=== PATIENT | male | born 1955 | race Caucasian/White ===

== ENCOUNTER → 2018-01-19 | Outpatient (REF) ==
[~2018-01-19] MED LIST: ATOR20TA22 PO; ATOR40TA24 PO; ESCI20TA38 PO; HYDR-2966 PO; HYDR-317 PO; KET10 PO; LEVO75TA68 PO; LEVO88TA43 PO; LISI-349 PO; LISI30TA49 PO
[2018-01-19 09:44] LABS: LDL CHOLESTEROL 98 mg/dl
== END ==
DX: Z02.9 Encounter for administrative examinations, unspecified (principal)

== ENCOUNTER → 2018-07-06 | Outpatient (CLI) | payer OTHER | LOC: RESP 19:55 | PROVIDERS: ATTEND Dentist | DX: G47.33 Obstructive sleep apnea (adult) (pediatric) (principal) ==

== ENCOUNTER → 2018-12-12 | Outpatient (REF) ==
[2018-12-12 08:51] LABS: LDL CHOLESTEROL 95 mg/dl
== END ==
DX: Z02.9 Encounter for administrative examinations, unspecified (principal)